=== PATIENT | male | born 1980 | race Caucasian/White ===

== ENCOUNTER 2020-04-05 06:44 | Inpatient (IN) | payer MEDICAID ==
[~2020-04-05] VITALS: Ht 172.7 cm; Wt 86.2 kg
[2020-04-05] MEDS ORDERED: LORAZEPAM 2MG/ML CPJ IV STA (07:31)
[2020-04-05] MEDS ORDERED: SODIUM CHLORIDE 0.9% 1,000 ML IV ONE (07:31)
[2020-04-05] MEDS ORDERED: CHLORDIAZEPOXIDE 25MG CAPSULE PO ONE (07:45)
[2020-04-05 07:47] LABS: BASOPHILS % 1.2 % (0.0-2.0); EOSINOPHILS % 1.4 % (0.0-5.0); HEMATOCRIT. 40.6 % (42.0-52.0); HEMOGLOBIN. 13.4 g/dL (14.0-18.0); LYMPHOCYTES % 13.8 % (20.0-50.0); MEAN CORPUSCULAR HEMOGLOBIN 29.6 pg (28.0-32.0); MEAN CORPUSCULAR VOLUME 89.6 fL (80.0-94.0); MEAN PLATELET VOLUME 7.9 fl (7.4-10.4); MONOCYTES % 9.7 % (2.0-8.0); NEUTROPHILS % 73.9 % (40.0-76.0); PLATELET 187 x1000/uL (130-400); RED BLOOD CELL COUNT 4.53 mill/uL (4.7-6.1); RED CELL DISTRIBUTION WIDTH 21.1 % (11.6-14.6)
[2020-04-05 07:50] LABS: CHLORIDE 93 mEq/L (98-107)
[2020-04-05 07:54] LABS: ETHANOL BLOOD < 10 mg/dL
[2020-04-05 09:20] LABS: CLARITY URINE TURBID (CLEAR); COLOR URINE DARK YELLOW (YELLOW); KETONES URINE TRACE (NEGATIVE); LEUKOCYTE ESTERASE URINE TRACE (NEGATIVE); NITRITE URINE NEGATIVE (NEGATIVE); OCCULT BLOOD URINE 1+ (NEGATIVE); PH URINE 6.5 (4.5-8.0); PROTEIN URINE 3+ (NEGATIVE); SPECIFIC GRAVITY URINE 1.025 (1.005-1.030)
[2020-04-05] MEDS ORDERED: KCL 20MEQ/100ML PREMIX 100 ML IV ONE (09:45)
[2020-04-05] MEDS ORDERED: POTASSIUM CHLORIDE 20MEQ TABLET SR PO ONE (09:45)
[2020-04-05 10:29] LABS: *AMPHETAMINES SCREEN URINE NEGATIVE (NEGATIVE); *BARBITURATES SCREEN URINE NEGATIVE (NEGATIVE); *BENZODIAZEPINES SCREEN URINE NEGATIVE (NEGATIVE); *COCAINE SCREEN URINE NEGATIVE (NEGATIVE); METHADONE URINE SCREEN NEGATIVE (NEGATIVE)
[2020-04-05 10:30] LABS: CANNABINOID URINE SCREEN NEGATIVE (NEGATIVE); OPIATES URINE SCREEN NEGATIVE (NEGATIVE); PHENCYCLIDINE URINE SCREEN NEGATIVE (NEGATIVE)
[2020-04-05] MEDS ORDERED: ACETAMINOPHEN 325MG TABLET PO PRN ×2 (11:00)
[2020-04-05] MEDS ORDERED: CLONIDINE 0.1MG TABLET PO PRN (11:00)
[2020-04-05] MEDS ORDERED: ONDANSETRON HCL 4MG/2ML INJ IV PRN (11:00)
[2020-04-05] MEDS ORDERED: DIPHENHYDRAMINE 50MG/ML VIAL IV PRN (11:00)
[2020-04-05] MEDS ORDERED: DEXTROSE 50% WATER 50ML SYRINGE IV PRN (11:00)
[2020-04-05] MEDS ORDERED: POTASSIUM CHLORIDE 20MEQ TABLET SR PO NR (11:15)
[2020-04-05] MEDS: SODIUM CHLORIDE 0.9% 1,000 ML IV SCH ×2 (11:20→23:13)
[2020-04-05] MEDS ORDERED: MVI, ADULT NO.1 10 ML, FOLIC ACID 1 MG, THIAMINE HCL 100 MG in SODIUM CHLORIDE 0.9% 1,0... IV SCH ×4 (13:00)
[2020-04-05] MEDS: CHLORDIAZEPOXIDE 25MG CAPSULE PO SCH ×2 (15:59→20:48)
[2020-04-05 16:00] VITALS: BP 118/85
[2020-04-05 16:46] VITALS: BP 118/69
[2020-04-05] MEDS: INSULIN LISPRO 100 UNITS/ML SUBCUT SCH ×2 (17:14→20:51)
[2020-04-05] MEDS: BLOOD SUGAR DIAGNOSTIC STRIP TEST SCH ×2 (17:14→20:51)
[2020-04-05] MEDS: LORAZEPAM 2MG/ML CPJ IV PRN (19:53)
[2020-04-05 20:27] VITALS: BP 135/78
[2020-04-05] MEDS ORDERED: HALOPERIDOL LACTATE 5MG/ML VIAL IM NR (21:15)
[2020-04-05] MEDS ORDERED: DIPHENHYDRAMINE 50MG/ML VIAL IV NR (21:15)
[2020-04-05] MEDS ORDERED: LEVETIRACETAM 500 MG in SODIUM CHLORIDE 0.9% 100 ML IV SCH (23:45)
[2020-04-06] VITALS: BP 107/56
[2020-04-06] MEDS: LEVETIRACETAM 500MG PREMIX 100 ML IV SCH ×3 (01:54→21:46)
[2020-04-06] MEDS: LORAZEPAM 2MG/ML CPJ IV PRN ×2 (01:54→18:20)
[2020-04-06 04:00] VITALS: BP 94/71
[2020-04-06] MEDS: CHLORDIAZEPOXIDE 25MG CAPSULE PO SCH ×3 (06:01→21:46)
[2020-04-06] MEDS: SODIUM CHLORIDE 0.9% 1,000 ML IV SCH ×2 (06:17→18:19)
[2020-04-06 07:07] LABS: HEMATOCRIT. 35.4 % (42.0-52.0); HEMOGLOBIN. 11.8 g/dL (14.0-18.0); MEAN CORPUSCULAR HEMOGLOBIN 29.8 pg (28.0-32.0); MEAN CORPUSCULAR VOLUME 89.8 fL (80.0-94.0); MEAN PLATELET VOLUME 8.1 fl (7.4-10.4); PLATELET 157 x1000/uL (130-400); RED BLOOD CELL COUNT 3.94 mill/uL (4.7-6.1); RED CELL DISTRIBUTION WIDTH 21.5 % (11.6-14.6)
[2020-04-06 07:35] LABS: CHLORIDE 107 mEq/L (98-107)
[2020-04-06] MEDS: INSULIN LISPRO 100 UNITS/ML SUBCUT SCH ×2 (07:40→12:40)
[2020-04-06 07:45] LABS: PHOSPHORUS 3.9 mg/dL (2.5-4.9)
[2020-04-06] MEDS: BLOOD SUGAR DIAGNOSTIC STRIP TEST SCH ×2 (07:53→12:10)
[2020-04-06 08:00] VITALS: BP 99/62
[2020-04-06] MEDS: PANTOPRAZOLE SODIUM 40 MG/VIAL IV SCH (11:08)
[2020-04-06 12:00] VITALS: BP 100/70
[2020-04-06] MEDS ORDERED: POTASSIUM CHLORIDE INJ 40 MEQ in DEXT 5% WATER 250 ML IV SCH (12:00)
[2020-04-06 13:48] LABS: PLATELET ESTIMATE NORMAL
[2020-04-06 16:00] VITALS: BP 120/74
[2020-04-06 20:00] VITALS: BP 112/76
[2020-04-07] VITALS: BP 122/71
[2020-04-07 04:00] VITALS: BP 114/81
[2020-04-07] MEDS: CHLORDIAZEPOXIDE 25MG CAPSULE PO SCH ×2 (05:39→15:17)
[2020-04-07] MEDS: SODIUM CHLORIDE 0.9% 1,000 ML IV SCH (05:40)
[2020-04-07 06:22] LABS: BASOPHILS % 1.5 % (0.0-2.0); HEMATOCRIT. 36.1 % (42.0-52.0); HEMOGLOBIN. 11.8 g/dL (14.0-18.0); LYMPHOCYTES % 24.8 % (20.0-50.0); MEAN CORPUSCULAR HEMOGLOBIN 29.7 pg (28.0-32.0); MEAN CORPUSCULAR VOLUME 90.7 fL (80.0-94.0); MEAN PLATELET VOLUME 7.8 fl (7.4-10.4); MONOCYTES % 13.9 % (2.0-8.0); NEUTROPHILS % 56.8 % (40.0-76.0); PLATELET 174 x1000/uL (130-400); RED BLOOD CELL COUNT 3.98 mill/uL (4.7-6.1); RED CELL DISTRIBUTION WIDTH 21.4 % (11.6-14.6)
[2020-04-07 06:50] LABS: CHLORIDE 105 mEq/L (98-107)
[2020-04-07 06:58] LABS: PHOSPHORUS 4.6 mg/dL (2.5-4.9)
[2020-04-07 08:00] VITALS: BP 115/67
[2020-04-07] MEDS: LEVETIRACETAM 500MG PREMIX 100 ML IV SCH (09:19)
[2020-04-07] MEDS: PANTOPRAZOLE SODIUM 40 MG/VIAL IV SCH (09:19)
[2020-04-07] MEDS ORDERED: POTASSIUM CHLORIDE 20MEQ TABLET SR PO SCH (10:30)
[2020-04-07 12:00] VITALS: BP 111/72
[2020-04-07] MEDS ORDERED: MAGNESIUM 2 G PREMIX 50 ML IV SCH (12:00)
[2020-04-07 16:00] VITALS: BP 120/80
[2020-04-07 18:36] VITALS: BP 120/80
[2020-04-08] MEDS ORDERED: FAMOTIDINE 20MG TABLET PO SCH (09:00)
== END 2020-04-07 19:05 | disposition home or self-care (01) | DRG 52 ==
LOC: ER 06:44 → EDBD 06:44 → 8WST 10:09 → EDBEDREQ 10:10 → ENRESERV 11:02
PROVIDERS: ADMIT Internal Medicine; ATTEND Internal Medicine
DX: G92 Toxic encephalopathy (principal); F10.231 Alcohol dependence with withdrawal delirium; E87.1 Hypo-osmolality and hyponatremia; R73.9 Hyperglycemia, unspecified; R74.0 Nonspecific elevation of levels of transaminase and lactic acid dehydrogenase [LDH]; E87.6 Hypokalemia
CPT/HCPCS: 36415; 70486; 80053; 80305; 80320; 81003; 82962; 83036; 83735; 84100; 85025; 93005; 99291; C9113; J1200; J1630; J1953; J2060; J2405; J3411; J3475; J3480; J3490; J7030; J7060; G0480